=== PATIENT | male | born 1965 | race Caucasian/White ===

== ENCOUNTER 2017-02-03 03:16 | Emergency (ER) | payer OTHER ==
[~2017-02-03] VITALS: Ht 180.3 cm; Wt 83.3 kg
[~2017-02-03 03:16] MED LIST: FIBER500 MG PO; PRAVACHOL40 MG PO; RANITIDINE HCL150 MG PO; TYLENOL WITH C1 EACH PO; ZESTORETIC 20-1 EAC2 PO; ZOLOFT100 MG PO
[2017-02-03 03:46] LABS: ADD MIUA? YES; BILIRUBIN NEGATIVE; BLOOD LARGE; COLOR YELLOW ((YELLOW)); GLUCOSE (STRIP) NEGATIVE; KETONES NEGATIVE; LEUKOCYTES SMALL; NITRITE NEGATIVE; PROTEIN (STRIP) 30; SPECIFIC GRAVITY 1.014 (1.000-1.030); UROBILINOGEN 0.2 MG/DL (0.2-1.0)
[2017-02-03 03:57] LABS: BACTERIA NONE SEEN /HPF; CALCIUM OXALATE CRYSTALS 1+ /HPF; EPITHELIAL CELLS NONE SEEN /HPF; MUCUS TRACE /LPF; RED BLOOD CELLS TNTC /HPF (0-5); UCUL ADDED? YES; WHITE BLOOD CELLS 20-30 /HPF (0-5)
[2017-02-03 03:59] LABS: HEMATOCRIT 42.8 % (38.0-50.0); MCH 30.7 PG (29.0-34.0); MCV 87.7 FL (86-99); MEAN PLAT.VOLUME 9.2 uM^3 (9.0-12.4); PLATELET COUNT 221 K/uL (156-360); RBC DIS.WIDTH-CV 12.5 % (11.8-14.6); RBC DIS.WIDTH-SD 40.8 % (39-53); RED BLOOD COUNT 4.88 M/uL (4.00-5.50); WHITE BLOOD COUNT 11.1 K/uL (4.1-10.2)
[2017-02-03 04:06] LABS: CHLORIDE 102 mEq/L (99-109); POTASSIUM 3.7 mEq/L (3.7-5.4); SODIUM 138 mEq/L (136-147)
[2017-02-03 04:08] LABS: GLUCOSE 108 mg/dL (70-99)
[2017-02-03 04:10] LABS: ANION GAP 16 MEQ/L (2-14); TOTAL BILIRUBIN 0.4 mg/dL (0.0-1.0)
[2017-02-03 04:12] LABS: ALKALINE PHOSPHATASE 99 IU/L (3-129); GFR ESTIMATE (CALCULATED) > 59 mL/min/
[2017-02-03 04:13] LABS: UREA NITROGEN (BUN) 13 mg/dL (9-23)
[2017-02-03] MEDS ORDERED: BACTRIM,SEPT1 TABLET PO (04:59)
[2017-02-03] MEDS ORDERED: PERCOCET 5/31 TABLET PO (04:59)
[2017-02-03 05:30] VITALS: BP 157/92
== END 2017-02-03 05:31 | disposition home or self-care (01) ==
LOC: EME 03:16
DX: N39.0 Urinary tract infection, site not specified (principal); N13.4 Hydroureter; I10 Essential (primary) hypertension; K21.9 Gastro-esophageal reflux disease without esophagitis; Z72.0 Tobacco use
CPT/HCPCS: 74176; 80053; 81003; 85027; 87086; 99281; 99284; J1885